=== PATIENT | male | born 1970 | race African-American/Black ===

== ENCOUNTER 2017-11-11 07:12 | Emergency (ER) | payer SELFPAY ==
[~2017-11-11] VITALS: Ht 182.9 cm; Wt 90.9 kg
[2017-11-11 07:18] VITALS: BP 114/70
== END 2017-11-11 07:52 | disposition home or self-care (01) ==
LOC: EMS 07:14
DX: Z72.820 Sleep deprivation (principal); F19.10 Other psychoactive substance abuse, uncomplicated; F17.210 Nicotine dependence, cigarettes, uncomplicated
CPT/HCPCS: 99281